=== PATIENT | male | born 1970 | race Caucasian/White ===

== ENCOUNTER → 2023-08-04 | Day surgery (SDC) | payer MEDICAID ==
[2023-08-02 09:43] VITALS: BMI 28.3
[~2023-08-04] MED LIST: LIDOCAINE 1% INJ 10MG/ML (20 ML MDV) ONE; PROPOFOL 10 MG/ML 20 ML VIAL IV ONE
[2023-08-04 08:12] LABS: Glucose,Whole Blood 189 mg/dL (70-110)
[2023-08-04] MEDS: LACTATED RINGERS 1,000 ML IV SCH (08:15)
[2023-08-04] MEDS: LIDOCAINE 1% (10MG/ML) FOR IV START INTRADERMA PRN (08:15)
[2023-08-04 08:20] VITALS: TEMP 97.6
--- NOTE | 2023-08-04 08:49 | P.PCN ---
Date of Procedure: 08/04/23 Procedure(s) Performed: Brief history: Patient is a pleasant 53-year-old white male scheduled for an elective upper endoscopy as well as colonoscopy as a part of evaluation of GERD and screening for colon cancer/positive cologuard. Procedure performed: Esophagogastroduodenoscopy with biopsy Colonoscopy with snare polypectomy. Preoperative diagnosis: GERD Screening for colon cancer/positive cologuard Anesthesia: MAC Procedure: After informed consent was obtained from the patient was brought into the endoscopy unit and IV sedation was administered by anesthesia under continuous monitoring. Initially upper endoscopy was done. The Olympus GF 160 video endoscope was inserted inserted into the mouth and esophagus intubated without any difficulty and was gradually advanced into the stomach and duodenum and carefully examined. The bulb and second part of the duodenum appeared normal. The scope was then withdrawn into the stomach adequately insufflated with air and upon careful examination the antrum had mild gastritis and biopsies were done from this area. There is stable inserted in the pylorus from previous surgery. Mucosa of the body, cardia and fundus appeared normal. The scope was then withdrawn into the esophagus. The GE junction was located at 40 cm to the incisors. It appeared regular with no erythema erosions or ulcerations. Rest of the esophagus appeared normal. Patient tolerated the procedure well. At this time the patient continued to remain sedation. Initial digital rectal examination was normal. Olympus CF 160 video colonoscope was then inserted into the rectum and gradually advanced to the cecum without any difficulty. Careful examination was performed as the scope was gradually being withdrawn. The prep was excellent. The cecum, ascending colon, transverse colon, descending colon, appeared normal. In the proximal; sigmoid there was a 4 mm polyp that was removed by cold snare polypectomy. In the distal sigmoid at 20 cm from the anal verge there was a 3 mm and 1.2 cm polyp removed by snare polypectomy. Rest of the sigmoid colon and rectum appeared normal. Retroflexion was performed in the rectum and no lesions were noted. Patient tolerated the procedure well. Impression: 1. Upper endoscopy revealed mild antral gastritis but no evidence of esophagitis or Vargas's esophagus 2. Colonoscopy revealed 3 mm, 4 mm and 1.2 cm sigmoid colon polyps status post snare polypectomy Recommendations: Findings of this examination were discussed with the patient as well as his family. He was advised to follow with the biopsy results. If the biopsy result adenoma he can have a repeat colonoscopy in 3 years.
[2023-08-04 08:56] VITALS: RESP 14
[2023-08-04 09:01] LABS: Glucose,Whole Blood 203 mg/dL (70-110)
[2023-08-04 09:30] VITALS: BP 101/74; PULSE 95
== END ==
LOC: ORWHC2ENDO 07:08
PROVIDERS: ATTEND Internal Medicine Gastroenterology
DX: D12.5 Benign neoplasm of sigmoid colon (principal); K29.50 Unspecified chronic gastritis without bleeding; K21.9 Gastro-esophageal reflux disease without esophagitis; I10 Essential (primary) hypertension; E11.9 Type 2 diabetes mellitus without complications; M19.90 Unspecified osteoarthritis, unspecified site; Z87.891 Personal history of nicotine dependence; Z88.5 Allergy status to narcotic agent; Z79.84 Long term (current) use of oral hypoglycemic drugs; Z79.899 Other long term (current) drug therapy; Z98.890 Other specified postprocedural states
CPT/HCPCS: 88305; 45385; 43239; J2001; J2704

== ENCOUNTER → 2024-05-15 | Outpatient (CLI) | payer MEDICAID ==
--- NOTE | 2024-05-15 17:36 | CTL ---
EXAMINATION TYPE: CT Low Dose Lung DATE OF EXAM: 05/15/2024 4:10 PM COMPARISON: None. CLINICAL INDICATION: Male, 53 years old with history of V15.82 [employer]MER SMOKER; , history of tobacco us e. TECHNIQUE: Multiple axial non-contrast scans were obtained from approximately the lung apices through the upper abdomen. Coronal and sagittal reformatted images were obtained. Low dose technique was uti lized. MIP were created on a separate workstation and submitted for review. CT DLP: mGycm, Automated exposure control for dose reduction was used. CT Contrast: Contrast used: None Oral contrast used: None FINDINGS: Lack of intravenous contrast and low dose technique limits the evaluation of the vascular and soft ti ssue structures. LUNGS: No evidence of pulmonary fibrosis. No evidence of focal consolidation, pneumothorax or pleural effusion. Centrilobular emphysema changes. Nodules: RUL: None. RML: 4 mm series 3 image 182 RLL: None. RAMYA: None. LLL: None. AIRWAY: Patent and unremarkable. HEART: Size within normal limits. MEDIASTINUM: No gross evidence of adenopathy. VASCULATURE: No aortic aneurysm. MUSCULOSKELETAL: No acute osseous abnormalities SOFT TISSUES/LYMPH NODES: Unremarkable. LOWER NECK: No significant findings. UPPER ABDOMEN: Scattered calcifications in the upper abdomen mesentery IMPRESSION: 1. No clinically significant pulmonary nodules. 2. Mild emphysema. CT LUNG RAD AND CT CHEST RECOMMENDATION: Lung-Rad 2 Benign Appearance or Behavior: Continue annual sc reening with LDCT in 12 months. S Modifier (other clinically significant findings): None Recommend smoking cessation (if current smoker), or continuation of smoking cessation (if prior smoke r). Annual screening for lung cancer with low-dose computed tomography is recommended in adults ages 55 to 77 years who have a 30 pack-year smoking history and currently smoke or have quit within the pa st 15 years. Screening should be discontinued once a person has not smoked for 15 years or develops a health problem that substantially limits life expectancy or the ability or willingness to have curat sandra lung surgery. Lung rads 2021 [email or web address] MRI 05/15/2024 5:18 PM,05/15/2024 4:10 PM,MPH IR,MPH,CT Low Dose Lung,[id number],4 after 3:00 [facility]RAD 05/15/2024 5:18 PM,05/15/2024 4:10 PM,MPH,CT Low Dose Lung,[id number],,, CT 05/15/2024 5:18 PM,05/15/2024 4:10 PM,CT Low Dose Lung,[id number], PET 05/15/2024 5:18 PM,05/15/2024 4:10 PM,MPH,[id number] [facility], , 05/15/2024 5:34 PM
== END | disposition home or self-care (01) ==
LOC: RADCTMAIN 15:10
PROVIDERS: ATTEND Internal Medicine
DX: Z12.2 Encounter for screening for malignant neoplasm of respiratory organs (principal); J43.9 Emphysema, unspecified; Z87.891 Personal history of nicotine dependence
CPT/HCPCS: 71271